=== PATIENT | male | born 1985 | race Caucasian/White ===

== ENCOUNTER 2017-06-18 17:22 | Emergency (ER) | END 2017-06-18 23:04 | disposition home or self-care (01) ==

== ENCOUNTER 2017-09-18 00:19 | Emergency (ER) | END 2017-09-18 00:57 | disposition left against medical advice (07) ==

== ENCOUNTER 2017-09-19 07:45 | Emergency (ER) | END 2017-09-19 09:38 | disposition home or self-care (01) ==